=== PATIENT | male | born 1990 | race African-American/Black ===

== ENCOUNTER 2017-12-18 11:32 | Emergency (ER) | payer SELFPAY ==
[~2017-12-18] VITALS: Ht 167.6 cm; Wt 63.5 kg
[2017-12-18] MEDS ORDERED: Haloperidol 5mg/ml Inj IM ONE (12:00)
[2017-12-18] MEDS ORDERED: LORazepam Inj 2mg/ml 1ml IM ONE (12:00)
--- NOTE | 2017-12-18 12:09 | Emergency Room Report ---
History of Present Illness General Chief Complaint: Altered Mental Status Source: Patient (Bennie Ortiz M.D.) Present Illness HPI This patient was brought in by paramedics. He was wandering in the streets, in traffic. He is not communicating. There was no report of any trauma. Hx. limited due to clinical condition. (Bennie Ortiz M.D.) Allergies: Coded Allergies: UNABLE TO ASSESS (Unverified , 12/18/17) Nursing Documentation-[facility] Past Medical History: Deferred (Bennie Ortiz M.D.) Review of Systems Constitutional: Reports: see HPI Respiratory: Reports: see HPI Cardiovascular: Reports: see HPI All Other Systems: limited (Bennie Ortiz M.D.) Physical Exam Vital Signs Date Time Temp Pulse Resp B/P (MAP) Pulse Ox O2 Delivery O2 Flow Rate FiO2 12/18/17 11:43 97.3 181 22 134/83 99 Room Air 97.3 Sp02 EP Interpretation: reviewed, normal General Appearance: normal inspection, well appearing, alert, non-toxic Head: normocephalic, atraumatic Eyes: bilateral eye normal inspection, bilateral eye PERRL, bilateral eye EOMI ENT: normal ENT inspection, normal pharynx, no angioedema, moist mucus membranes Neck: normal inspection, full range of motion, supple, no meningismus Respiratory: normal inspection, lungs clear, normal breath sounds, no rhonchi, no respiratory distress, no retraction, no accessory muscle use, no wheezing Cardiovascular #1: normal inspection, regular rate, rhythm, no edema Gastrointestinal: non tender, soft, non-distended Musculoskeletal: gait/station normal, normal range of motion Neurologic: normal inspection, alert, responsive, motor strength/tone normal, other - normal gait Psychiatric: other - very flat affect, responding to internal stimuli Suicide Risk Assessment: Suicidal Ideation: No Had intent to initiate attempt: No Pt's plan for suicide attempt: No Has means to complete attempt: No Skin: normal inspection, normal color, no rash, warm/dry (Bennie Ortiz M.D.) Medical Decision Making Diagnostic Impression: Primary Impression: Psychosis Qualified Codes: F23 - Brief psychotic disorder Additional Impression: Methamphetamine abuse ER Course This patient is presenting as florid psychosis, to the point of being nonverbal. He stares without focus. He stood on the gurney, backwards, with his arms outstretched. He is responding to internal stimuli. There is no old EMR. Small dose Haldol ordered IM. Drug screen sent to assist diagnostically. (Bennie Ortiz M.D.) ER Course Patient presents with acute psychosis secondary to methamphetamine abuse. He was sedated. Now he is awake alert oriented 4. Calm. Not suicidal homicidal. Said he is not homeless. Want to go home. We'll discharge home. I see no criteria for 5150. This patient is a chronic risk of self injury due to poor impulse control, limited coping skills, and judgment intermittently impaired by intoxication. I believe that the available clinical evidence to suggest that these characteristics derived primarily from personality disorder and are likely very stable over time. Hospitalization would likely attenuate risk of self-harm only during correction period, without lasting risk reduction. Serious self-harm , while possible, would likely be inadvertent, and because of impulsivity, and foreseeable. For these reasons, I do not believe hospitalization would provide meaningful reduction in risk of self-harm. (SANJIV BURGER M.D.) EKG Diagnostic Results EKG Time: 12:15 Rate: tachycardiac ST Segments: no acute changes Other Impression sinus tachy 113 (Bennie Ortiz M.D.) Rhythm Strip Diag. Results Rhythm Strip Time: 12:05 EP Interpretation: yes Rate: 111 Rhythm: no ectopy (Bennie Ortiz M.D.) Last Vital Signs Date Time Temp Pulse Resp B/P (MAP) Pulse Ox O2 Delivery O2 Flow Rate FiO2 12/18/17 11:43 97.3 181 22 134/83 99 Room Air 97.3 (Bennie Ortiz M.D.) Status: improved (SANJIV BURGER M.D.) Disposition: HOME, SELF-CARE Condition: Stable Patient Instructions: Psychosis Additional Instructions: Stop using drugs. Follow-up with rehabilitation. Follow-up with your doctor in a week. Return if worse. Bennie Ortiz M.D. Dec 18, 2017 12:09 SANJIV BURGER M.D. Dec 18, 2017 23:10
[2017-12-18 12:41] LABS: BASOPHILS % (AUTO) 1.1 % (0.0-2.0); HEMATOCRIT 43.9 % (42.0-52.0); HEMOGLOBIN 14.7 G/DL (14.2-18.0); MEAN CORPUSCULAR VOLUME 92 FL (80-99); MONOCYTES % (AUTO) 8.7 % (1.0-10.0); NEUTROPHILS % (AUTO) 78.1 % (45.0-75.0); PLATELET COUNT 240 K/UL (150-450); RED BLOOD COUNT 4.76 M/UL (4.70-6.10); RED CELL DISTRIBUTION WIDTH 10.8 % (11.6-14.8); WHITE BLOOD COUNT 7.7 K/UL (4.8-10.8)
[2017-12-18 12:52] VITALS: BP 84/32
[2017-12-18 12:59] LABS: ANION GAP 12 mmol/L (5-15); BLOOD UREA NITROGEN 12 mg/dL (7-18); CALCIUM 9.9 MG/DL (8.5-10.1); CARBON DIOXIDE 26 MMOL/L (21-32); CHLORIDE 104 MMOL/L (98-107); CREATININE 1.3 MG/DL (0.55-1.30); POTASSIUM 3.1 MMOL/L (3.5-5.1); SODIUM 142 MMOL/L (136-145)
[2017-12-18 13:08] LABS: ALANINE AMINOTRANSFERASE 32 U/L (12-78); ALBUMIN 4.8 G/DL (3.4-5.0); ALBUMIN/GLOBULIN RATIO 1.4 (1.0-2.7); ALKALINE PHOSPHATASE 79 U/L (46-116); ASPARTATE AMINO TRANSFERASE 64 U/L (15-37); BILIRUBIN,TOTAL 1.3 MG/DL (0.2-1.0)
[2017-12-18 13:15] LABS: BILIRUBIN,DIRECT 0.2 MG/DL (0.0-0.3)
[2017-12-18 15:21] VITALS: BP 107/67
[2017-12-18 18:22] VITALS: BP 103/65
[2017-12-18 23:24] VITALS: BP 138/80
[2017-12-19 05:27] VITALS: BP 96/65
[2017-12-19 05:41] VITALS: BP 96/65
[2017-12-19] MEDS ORDERED: VIBRAMYCIN100 MG ORAL (11:51)
== END 2017-12-19 05:41 | disposition home or self-care (01) ==
LOC: EMR 12:57
DX: F23 Brief psychotic disorder (principal); F15.129 Other stimulant abuse with intoxication, unspecified
CPT/HCPCS: 36415; 80053; 80307; 82248; 84132; 85025; 99284; G0480; J1630; 80329